=== PATIENT | male | born 1945 | race Caucasian/White ===

== ENCOUNTER 2023-12-14 08:44 | Emergency (ER) | payer OTHER ==
[~2023-12-14] VITALS: Ht 167.6 cm; Wt 74.8 kg
[2023-12-14 08:46] VITALS: PULSE 82; RESP 14; TEMP 97.9; O2SAT 94
[2023-12-14 09:00] VITALS: TEMP 97.9
[2023-12-14] MEDS: KETOROLAC 30 MG/ML VIAL IM ONE (10:15)
[2023-12-14] MEDS ORDERED: ACET-10509 PO (12:43)
[2023-12-14 13:00] VITALS: BP 120/83; PULSE 91; RESP 13; O2SAT 98
== END 2023-12-14 13:00 | disposition home or self-care (01) ==
LOC: MED 08:44
DX: S80.02XA Contusion of left knee, initial encounter (principal); S80.01XA Contusion of right knee, initial encounter; I10 Essential (primary) hypertension; E11.9 Type 2 diabetes mellitus without complications; Z79.1 Long term (current) use of non-steroidal anti-inflammatories (NSAID); W17.89XA Other fall from one level to another, initial encounter; Y93.89 Activity, other specified; Y92.092 Bedroom in other non-institutional residence as the place of occurrence of the external cause; Y99.8 Other external cause status
CPT/HCPCS: 73562; 96372; 99283; J1885; 99284